=== PATIENT | female | born 1945 | race Caucasian/White ===

== ENCOUNTER 2023-05-01 09:54 | Outpatient (OUT) | payer MEDICARE, BC, SELFPAY ==
--- NOTE | 2023-05-01 | ECG_ITS ---
[facility] Test Date: 2023-05-01 Pat Name: CINTIA LOUIS Department: Room: - Gender: Female [employer]: : 1945 Requested By: Martha Thomas Order Number: [id number] Reading MD: JUAN MANUEL SOMMERS Measurements Intervals [place] Rate: 56 P: 58 VT: 161 QRS: 53 QRSD: 88 T: 64 QT: 426 QTc: 413 Interpretive Statements SINUS BRADYCARDIA Nonspecific ST/T wave changes Compared to ECG 07/18/2016 11:28:48 No significant changes Electronically Signed On 05-01-2023 20:10:27 EST by JUAN MANUEL SOMMERS
== END 2023-05-01 09:55 | disposition home or self-care (01) ==
LOC: CARD 10:01
PROVIDERS: PCP Family Medicine; Visit Provider Family Medicine
DX: R42 Dizziness and giddiness (principal); I10 Essential (primary) hypertension
CPT/HCPCS: 93005

== ENCOUNTER 2023-07-25 16:24 | Outpatient (OUT) | payer MEDICARE, BC, SELFPAY ==
[2023-07-25 16:54] LABS: Basophils Percent Auto 0.5 % (0.2-2.0); Eosinophils Absolute Auto 0.1 10^3/uL (0.0-0.7); Eosinophils Percent Auto 0.9 % (0.9-7.0); Hemoglobin 12.1 g/dL (12.0-16.0); Immature Granulocytes Abs Auto 0.01 10^3/uL (0.00-0.03); Immature Granulocytes Pct Auto 0.1 % (0.0-0.5); Lymphocytes Percent Auto 25.2 % (20.5-60.0); Mean Corpuscular HGB Conc 32.7 g/dL (29.9-35.2); Mean Corpuscular Volume 88.7 fL (81.0-99.0); Mean Platelet Volume 8.6 fL (9.5-13.5); Monocytes Absolute Auto 0.8 10^3/uL (0.3-0.8); Monocytes Percent Auto 9.7 % (1.7-12.0); Neutrophils Percent Auto 63.6 % (43.0-75.0); Platelet Count 277 10^3/uL (150-450); Red Blood Count 4.17 10^6/uL (4.20-5.40); Red Cell Distribution Width 13.3 % (11.0-15.0); White Blood Count 7.8 10^3/uL (4.0-11.0)
--- NOTE | 2023-07-25 16:55 | CA_ITS ---
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1945 Requested By: Martha Thomas Order Number: [id number] Reading MD: JUAN MANUEL SOMMERS Interpretive Statements Predominant rhythm is sinus with average rate of 70 bpm Tachycardia - max rate of 122 bpm (SVT) - 2 episodes of PSVT w/ longest episode of 5 beats - longest episode of 4min 10sec with rates between 105-113 bpm Bradycardia - min rate of 48 bpm - longest episode of 39min 26sec with rates between 49-54 bpm Ventricular ectopy - 16 PVC, < 1% burden Patient triggered events: 12 - associated with symptoms of chest pain, flutter, palpitations, fatigue - associated w/ SVE - associated w/ NSR Impression: Predominant rhythm is sinus with average rate of 70 bpm Fastest rate of 122 bpm (SVT) and slowest rate of 48 bpm 16 PVC No atrial fib No pauses or blocks Electronically Signed On 08-08-2023 22:28:00 EDT by JUAN MANUEL SOMMERS
--- NOTE | 2023-07-25 16:55 | ECG_ITS ---
[facility] Test Date: 2023-07-25 Pat Name: CINTIA LOUIS Department: Room: - Gender: Female [employer] Machine: : 1945 Requested By: Martha Thomas Order Number: [id number] Reading MD: JUAN MANUEL SOMMERS Measurements Intervals [place] Rate: 62 P: 66 PA: 154 QRS: 59 QRSD: 84 T: 67 QT: 407 QTc: 414 Interpretive Statements SINUS RHYTHM Compared to ECG 05/01/2023 10:40:30 Sinus bradycardia no longer present ST (T wave) deviation no longer present Electronically Signed On 07-25-2023 23:09:33 EDT by JUAN MANUEL SOMMERS
[2023-07-25 17:18] LABS: Alanine Aminotransferase 25 U/L (14-59); Albumin Globulin Ratio 0.7; Albumin Level 3.6 g/dL (3.4-5.0); Alkaline Phosphatase 76 U/L (46-116); Anion Gap 11.1; Aspartate Amino Transferase 23 U/L (15-37); BUN Creatinine Ratio 25.3; Bilirubin Total 0.3 mg/dL (0.2-1.0); Calcium 9.8 mg/dL (8.5-10.1); Carbon Dioxide 30.5 mmol/L (21.0-32.0); Chloride 100 mmol/L (98-107); Estimated GFR (African America >60 (>=60); Estimated GFR (Non-African Ame 60 (>=60); Glucose 92 mg/dL (74-106); Magnesium 2.1 mg/dL (1.8-2.4); Potassium 3.6 mmol/L (3.5-5.1); Sodium 138 mmol/L (136-145); Total Protein 8.6 g/dL (6.4-8.2); Troponin I High Sensitivity 5.5 pg/mL (4.0-51.3)
== END 2023-07-25 16:25 | disposition home or self-care (01) ==
LOC: LAB 16:37
PROVIDERS: PCP Family Medicine; Visit Provider Family Medicine
DX: R00.2 Palpitations (principal)
CPT/HCPCS: 36415; 80053; 83735; 84484; 85025; 93005; 93242